=== PATIENT | male | born 1960 | race Caucasian/White ===

== ENCOUNTER 2018-06-05 21:04 | Emergency (ER) | payer OTHER ==
--- NOTE | 2018-06-05 21:22 | Emergency Department Record ---
History of Present Illness - General Chief complaint: Pain Stated complaint: LT KNEE PAIN Time Seen by Provider: 06/05/18 21:15 Source: Patient Mode of Arrival: Ambulatory Limitations: No limitations - History of Present Illness Initial comments: The patient is here due to L knee pain for about 5 weeks since he twisted it deer hunting 5 weeks ago. The pain has waxed and waned and now seems to be worse since a grandchild fell on it yesterday. He now is feeling a popping sensation when walking on it at times. He has not had an xray of it. MD Complaint: Extremity pain Onset/Timin -: Week(s) Location: Left, Knee History of Same: No Severity scale (1-10): 8 Quality: Aching Consistency: Constant - Related Data Previous Rx's Medication Instructions Recorded Azithromycin [Zithromax] 250 mg PO DAILY #4 tab 06/13/14 Prednisone [Prednisone 20Mg] 20 mg PO DAILY #7 tab 06/13/14 Allergies Allergy/AdvReac Type Severity Reaction Status Date / Time No Known Drug Allergies Allergy Verified 06/13/14 17:34 Travel Screening - Travel/Exposure Within Last 30 Days Have you traveled within the last 30 days?: No - Travel Symptoms Symptom Screening: None Review of Systems Constitutional: Denies: Chills, Fever Eyes: Denies: Eye discharge ENT: Denies: Congestion Respiratory: Denies: Cough, Dyspnea Past Medical History - SOCIAL HISTORY Smoking Status: Never smoker Alcohol Use: Occasional Drug Use: None - RESPIRATORY Hx Respiratory Disorders: Yes Hx Asthma: Yes Hx Bronchitis: Yes Hx Sleep Apnea: Yes - CARDIOVASCULAR Hx Cardio Disorders: No Comment:: murmur, hypercholesterol - NEURO Hx Neuro Disorders: No Comment:: hearing aids - GI Hx GI Disorders: No - Hx Genitourinary Disorders: No - ENDOCRINE Hx Endocrine Disorders: No Hx Diabetes: No Hx Thyroid Disease: No - MUSCULOSKELETAL Hx Musculoskeletal Disorders: Yes Hx Arthritis: Yes - PSYCH Hx Psych Problems: No - HEMATOLOGY/ONCOLOGY Hx Hematology/Oncology Disorders: No Family Medical History Any Significant Family History?: Yes Hx Cancer: Mother, Grandparents Hx Dementia: Father, Mother, Grandparents Hx Heart Disease: Grandparents Physical Exam - General General Appearance: Alert, Oriented x3, Cooperative, No acute distress - Head Head exam: Atraumatic, Normocephalic - Eye Eye exam: Normal appearance - Extremities Extremities exam: Normal inspection (There is no obvious joint effusion, erythema, or abrasions.), Normal capillary refill, Tenderness (There is diffuse tenderness anteriorly.), Other (The L lower leg is NVI distally with normal pulses.). negative: Calf tenderness, Full ROM, Joint swelling, Pedal edema - Neurological Neurological exam: Alert, Oriented X3. negative: Motor sensory deficit - Skin Skin exam: negative: Rash Course Vital Signs 06/05/18 21:10 Temperature 98.1 F Pulse Rate 100 H Respiratory 20 Rate Blood Pressure 150/92 Pulse Ox 97 - Reevaluation(s) Reevaluation #1: I did discuss the issues with the patient and the need for F/U with his PCP and Ortho for further eval and an MRI. 06/05/18 23:06 Medical Decision Making - Data Complexity MDM Data: X-Ray Ordered and/or Reviewed - Radiology Data Radiology results: Report reviewed (L knee: Prob joint effusion with DJD. Neg for acute change.) Disposition Disposition: Discharge Clinical Impression: Knee pain, left Qualifiers: Chronicity: acute Qualified Code(s): M25.562 - Pain in left knee Disposition: Home, Self-Care Condition: (2) Stable Instructions: Knee Pain (ED) Additional Instructions: Please take your home pain medicines as needed and please wear your brace and use the crutches. Please see your family doctor for an MRI and please also see Dr. Monzon in the Specialty clinic. Referrals: [facility] Specialty Clinics [Provider Group] Forms: Patient Portal Access Time of Disposition: 23:07 Quality - Quality Measures Quality Measures: N/A - Blood Pressure Screening View Details: Yes Does Patient Have Any of the Following: No Blood Pressure Classification: Hypertensive Reading Systolic Measurement: 150 Diastolic Measurement: 92 Screening for High Blood Pressure: < First Hypertensive BP, F/U Documented > [ [id number]] First Hypertensive Follow-up Interventions: Referral to alternative/primary care provider.
--- NOTE | 2018-06-07 13:15 | RADIOLOGY REPORT ---
EXAM: KNEE, LEFT 3 VIEWS HISTORY: ACUTE ON CHRONIC KNEE PAIN. TECHNIQUE: Four views of the left knee. COMPARISON: None. FINDINGS: Small knee joint effusion. No acute fracture is identified. No evidence of dislocation. Mild knee joint arthrosis with tiny medial compartment marginal osteophytes and mildly narrowed appearance of the lateral patellofemoral joint space. Quadriceps and patellar tendon insertional enthesophytes are present. IMPRESSION: 1. SMALL KNEE JOINT EFFUSION. 2. NO DEFINITE ACUTE OSSEOUS FINDINGS. 3. MILD DEGENERATIVE FINDINGS. JOB NUMBER: [id number] [facility]
== END 2018-06-05 23:39 | disposition home or self-care (01) ==
LOC: ER 21:04
DX: G89.11 Acute pain due to trauma (principal); M25.562 Pain in left knee; W51.XXXA Accidental striking against or bumped into by another person, initial encounter
CPT/HCPCS: 99283